=== PATIENT | female | born 1985 ===

== ENCOUNTER 2017-05-09 13:04 | Emergency (ER) | payer BC ==
--- NOTE | 2017-05-09 15:34 | UC ---
Back Pain HPI - HPI Summary HPI Summary: back spasms on/off for several months---back does not seem to be in spasm now no known or specific injury. - History of Current Complaint Chief Complaint: UCBackPain Stated Complaint: BACK PAIN/SPASMS *6 MONTHS Time Seen by Provider: 05/09/17 15:00 Hx Obtained From: Patient Hx Last Menstrual Period: 2 weeks ago ?: No Onset/Duration: Gradual Onset, Lasting Weeks Timing: Constant - waxing and waneing Severity Initially: Moderate Severity Currently: Moderate Pain Intensity: 5 Pain Scale Used: 0-10 Numeric Back Pain: Is Discrete @ - no pain in spine pain bilateral sides to spine Character: Aching, Spasmodic, Stiffness Aggravating Factor(s): Movement Alleviating Factor(s): Nothing Associated Signs And Symptoms: Positive: Negative - Allergies/Home Medications Allergies/Adverse Reactions: Allergies Allergy/AdvReac Type Severity Reaction Status Date / Time No Known Allergies Allergy Verified 05/09/17 14:05 PMH/Surg Hx/FS Hx/Imm Hx Previously Healthy: Yes - Surgical History Surgical History: Yes Surgery Procedure, Year, and Place: 2004 Appendix. Tonsils - Family History Known Family History: Positive: None - Social History Occupation: Employed Full-time, Employed Part-time Lives: With Family Alcohol Use: Occasionally Substance Use Type: None Smoking Status (MU): Never Smoked Tobacco Review of Systems Constitutional: Negative Skin: Negative Eyes: Negative ENT: Negative Respiratory: Negative Cardiovascular: Negative Gastrointestinal: Negative Genitourinary: Negative Motor: Negative Neurovascular: Negative Musculoskeletal: Negative, Myalgia - muscles on both sides of spine lumbar sacral area Neurological: Negative Psychological: Negative Is Patient Immunocompromised?: No All Other Systems Reviewed And Are Negative: Yes Physical Exam Triage Information Reviewed: Yes Appearance: Well-Appearing, No Pain Distress, Well-Nourished Vital Signs: Initial Vital Signs Temp 97.8 F 05/09/17 14:06 Pulse 89 05/09/17 14:06 Resp 16 05/09/17 14:06 BP 110/65 05/09/17 14:06 Pulse Ox 100 05/09/17 14:06 Vital Signs Reviewed: Yes Eye Exam: Normal Eyes: Positive: Conjunctiva Clear ENT Exam: Normal ENT: Positive: Normal ENT inspection, Hearing grossly normal. Negative: Trismus , Muffled voice, Hoarse voice Dental Exam: Normal Neck exam: Normal Neck: Positive: Supple, Nontender Respiratory Exam: Normal Respiratory: Positive: Chest non-tender, No respiratory distress, No accessory muscle use Cardiovascular Exam: Normal Cardiovascular: Positive: RRR, Brisk Capillary Refill Musculoskeletal Exam: Normal Musculoskeletal: Positive: Strength Intact, ROM Intact, No Edema Neurological Exam: Normal Neurological: Positive: Alert, Muscle Tone Normal Psychological Exam: Normal Skin Exam: Normal Diagnostics - Radiology No standard instances Xray Interpretation: No Acute Changes Radiology Interpretation Completed By: Radiologist Back Pain Course/Dx - Course Course Of Treatment: nsaids, muscle relaxors, low back and core strengthening exercises follow with pcp - Differential Dx/Diagnosis Provider Diagnoses: muscle spasm low back Discharge - Discharge Plan Condition: Stable Disposition: HOME Prescriptions: Cyclobenzaprine TAB* [Flexeril 10 MG TAB*] 10 mg PO TID PRN #20 tab PRN Reason: muscle spasm Ibuprofen TAB* [Motrin TAB* 800 MG] 800 mg PO Q8H PRN #30 tab PRN Reason: pain Patient Education Materials: Low Back Strain (ED), Lower Back Exercises (ED), Core Strengthening Exercises (ED) [place]: [facility] [place] [facility] [place]] - 1 Week
--- NOTE | 2017-05-09 15:55 | RAD ---
INDICATION: Back pain COMPARISON: None TECHNIQUE: Routine PA, lateral, and oblique imaging was performed . FINDINGS: Bones: There are no acute bony findings. There are no significant osteoarthritic findings. Alignment: Normal Disc spaces: The disc spaces are well-maintained Soft tissues: There are no soft tissue abnormalities. IMPRESSION: NEGATIVE EXAMINATION.
== END 2017-05-09 16:08 | disposition home or self-care (01) ==
LOC: UCCORT 13:04
DX: M62.830 Muscle spasm of back (principal)
CPT/HCPCS: 72110; 81003; 87077; 87086; 99202; G0463